=== PATIENT | male | born 1935 | race Caucasian/White ===

== ENCOUNTER 2018-06-26 14:30 | Outpatient (CLI) | payer MEDICARE, OTHER ==
[~2018-06-26 14:30] MED LIST: ISOVUE-370 76%-LOCM 1 ML ONE
--- NOTE | 2018-06-27 10:23 | CT ---
CTA ABDOMEN AND PELVIS WITH AND WITHOUT IV CONTRAST: INDICATIONS: Abdominal aortic aneurysm. COMPARISON: None. TECHNIQUE: Three-dimensional reformatted images were constructed from the raw data and submitted for interpretat ion. FINDINGS: VASCULATURE: There is an infrarenal abdominal aortic aneurysm, measuring 5.2 cm in its greatest AP dimension and m easuring 8 cm in its greatest craniocaudad dimension. The neck of the aneurysm originates 2.3 cm bel ow the level of the renal artery origin. The infrarenal abdominal aorta, above the level of the aneurysm, measures 1.8 cm. The suprarenal abdominal aorta, at the level of the hiatus, measures 2.2 cm. The abdominal aorta, at the level of the renal arteries, measures 2.2 cm. The distal abdominal aorta , just prior to the bifurcation, measures 1.7 cm. The right common iliac artery measures 9.9 mm. The left common iliac artery measures 11.8 mm. The right external iliac artery measures 7.4 mm. The left external iliac artery measures 7.5 mm. The right common femoral artery measures 8.7 mm. The left common femoral artery measures 1 cm. There is moderate narrowing at the origin of the celiac artery. The SMA is widely patent. There are single renal arteries bilaterally. There is mild narrowing involving the origin of the left renal a rtery. The right renal artery is patent. The CINDY originates off the inferior aspect of the infraren al abdominal aortic aneurysm, with the proximal aspect of the CINDY occluded. There is some reconstitu tion of flow within the distal CINDY, likely through collaterals. There is 50% luminal caliber narrowing involving the right common iliac artery, on image 255 of the a xial series. There is 50% luminal caliber narrowing involving the left common iliac artery, on image 247 of the axial series. There is mild narrowing involving the right common femoral artery. ABDOMEN: There is peripheral honeycombing involving the lung bases, suspicious for sequela of underl krista interstitial lung disease. There is a small hiatal hernia. No focal hepatic liver lesion is ev ident. The gallbladder is surgically absent. There is a 7 mm enhancing lesion within the lower pole of the spleen, which is nonspecific. There is a 1.5 cm right adrenal adenoma. The left adrenal gla nd is normal appearing. The pancreas appears within normal limits. 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 There are small cysts seen bilaterally. The largest cyst is seen extending exophytically off the lateral margin of the right mid kidney, measuring 6.7 cm. No enlarged lymph nodes or free fluid is evident. PELVIS: There are scattered diverticula involving the colon without evidence of active diverticuliti s. There is a moderate amount of retained stool within the colon. There is a normal appendix in the right lower quadrant. There is scattered degenerative and osteoarthritic change. No acute osseous abnormality is evident. IMPRESSION: 1. Infrarenal abdominal aortic aneurysm. The aneurysm measures up to 5.2 cm in greatest anterior-po sterior dimension. 2. Mild narrowing involving the origin of the celiac artery and the left renal artery. 3. 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 4. Fifty percent luminal caliber narrowing involving the common iliac arteries bilaterally. 5. Mild narrowing involving the right common femoral artery. 6. Bilateral lower lobe honeycombing and interstitial prominence, suspicious for underlying intersti tial lung disease. 7. Small hiatal hernia. 8. Tiny enhancing lesion within the lower pole of the spleen, suspicious for a small hemangioma. Th is cannot be further characterized on the current study. 9. Cholecystectomy. 10. Colonic diverticulosis. 11. 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 POS: GÓMEZ
== END 2018-06-26 14:31 | disposition home or self-care (01) ==
LOC: BICCT 14:30
PROVIDERS: ATTEND Thoracic Surgery (Cardiothoracic Vascular Surgery)
DX: I71.4 Abdominal aortic aneurysm, without rupture (principal); I77.4 Celiac artery compression syndrome; I70.1 Atherosclerosis of renal artery; K55.069 Acute infarction of intestine, part and extent unspecified; I70.8 Atherosclerosis of other arteries; K44.9 Diaphragmatic hernia without obstruction or gangrene; D73.89 Other diseases of spleen; K57.30 Diverticulosis of large intestine without perforation or abscess without bleeding; N28.1 Cyst of kidney, acquired; N13.5 Crossing vessel and stricture of ureter without hydronephrosis; Z90.49 Acquired absence of other specified parts of digestive tract
CPT/HCPCS: 74174; 82565